=== PATIENT | male | born 1950 | race Caucasian/White ===

== ENCOUNTER 2017-04-25 18:58 | Emergency (ER) | payer OTHER ==
[~2017-04-25] VITALS: Ht 170.2 cm; Wt 80.9 kg
[~2017-04-25 18:58] MED LIST: OXYC-57 PO
[2017-04-25 19:00] VITALS: TEMP 37; Ht 170.2 cm; Wt 80.9 kg
[2017-04-25] MEDS ORDERED: ASPI81TA28 PO (19:17)
--- NOTE | 2017-04-25 19:29 | EMERGENCY ROOM VISIT NOTE ---
ED Visit Note First contact with patient: 19:07 CHIEF COMPLAINT: Left Ankle pain HISTORY OF PRESENT ILLNESS: This 66-year-old male patient presents to the emergency department ambulatory, approximately 12 hours after sustaining an injury to the left ankle and foot with a twisting, inversion motion. The patient states he was walking down his porch steps outside, did not realize that there was ice on the door mat. He states when he stepped, he slipped, falling backwards onto his bottom. He states when he slipped, he twisted the left ankle. The patient reports ongoing swelling and pain of the left ankle all day. The patient complains of pain along the outside of the ankle. The patient denies pain of the foot. The patient rates the pain as throbbing and 6/ 10. The patient is able to bear weight on the foot. Constant pain, worse with movement, initial weight bearing, and the dependent position. The patient states the pain does improve and loosen up as he is walking, however after sitting for a period of time, the ligaments seem to stiffen up which causes more pain when he rises to ambulate. No knee pain, the patient is able to move their toes. No numbness or weakness of the foot, no laceration. The patient has not had a previous fracture to this ankle. The patient has used ice and Epsom soaks without relief of the pain. The patient denies any other injury. REVIEW OF SYSTEMS: A 6 system review of systems was completed with positives and pertinent negatives listed in the HPI. ALLERGIES: None MEDICATIONS: Aspirin PMH: Sleep apnea SOCIAL HISTORY: Lives locally with family. He denies drug, alcohol use. He admits to smoking approximately 1 pack of cigarettes per day. PHYSICAL EXAM: Vital Signs: Reviewed Nurse's notes, vital signs stable. GENERAL : This is a 66-year-old white male, no acute distress, but appears in pain, well -developed, well-nourished. MENTAL STATUS: Alert, oriented to person place and time, and cooperative. MUSCULOSKELETAL: The left ankle is swollen and tender over the lateral malleolus, but the skin is intact and there is no ligamentous instability. There is no fifth metatarsal tenderness. There is no tenderness over the rest of the foot. There is no calf or tibia/fibular tenderness. There is no visual deformity. The foot and toes are warm and well-perfused. Dorsalis pedis pulse 2+. Sensation to pain and light touch is intact. Capillary refill less than 2 seconds. RADIOLOGY: L ANKLE MIN 3 VIEWS ROUTINE CLINICAL HISTORY: 66 years-old Male presenting with left ankle pain. TECHNIQUE: Frontal, mortise, and lateral views of the left ankle were obtained. COMPARISON: None. FINDINGS: Ankle mortise intact. Diffuse soft tissue swelling greatest along the lateral malleolus. Tiny ossific fragment may be present at the inferior pole the medial malleolus. No other evidence of acute fracture or malalignment. IMPRESSION: Tiny ossific fragments may be present at the inferior pole the medial malleolus. This could relate to chronic injury or degeneration versus acute avulsion injury. No other evidence of acute osseous injury. Electronically signed by: Carlos Santos M.D. 04/25/2017 7:31 PM Dictated Date/Time: 04/25/2017 7:30 PM EMERGENCY DEPARTMENT COURSE: I examined the patient. X-rays of the left ankle were reviewed by myself and read by radiology and reveal a possible small avulsion of the medial malleolus. A gel ankle splint was applied to the ankle under my direction and the position was satisfactory. Neurovascular status was rechecked and intact. The patient was encouraged to use the walker he has at home. Discharge instructions reviewed. The patient was discharged home in good condition. The patient was seen and evaluated by Dr. Hughes. I attest that I have personally reviewed the patient's current medication list. Patient was found to have normal blood pressure on screening and does not require follow-up. DIFFERENTIAL DIAGNOSIS: sprain, strain, fracture, avulsion fracture, malignancy , and others DIAGNOSIS: Left ankle sprain Current/Historical Medications Scheduled Aspirin (Aspirin Ec), 81 MG PO DAILY Allergies Coded Allergies: No Known Allergies (Unverified , 02/28/13) Vital Signs Date Time Temp Pulse Resp B/P (MAP) Pulse Ox O2 Delivery O2 Flow Rate FiO2 04/25/17 19:00 37.0 109 16 129/75 94 Room Air Departure Information Impression Primary Impression: Left ankle sprain Dispostion Home / Self-Care Condition GOOD Referrals No Doctor, Assigned (PCP) Villa Lau M.D. Patient Instructions ED Sprain Ankle, [facility] Additional Instructions You have been treated in the Emergency Department for an Ankle sprain, possible small avulsion of the medial malleolus. For pain control, you can use the following [id number] medicines (if >12 yo): Ibuprofen(Motrin, Advil) may be used for fever or pain. Use 600mg every six hours as needed. Take with food. Avoid using more than 2400mg in a 24 hour period. Do not use 2400mg per day for more than three consecutive days without physician direction. Prolonged inappropriate use can lead to stomach upset or ulcers. (AND/OR) Acetaminophen(Tylenol) may be used for fever or pain. Use 1000mg every six hours as needed. Avoid using more than 3000mg in a 24 hour period. If this is a recent injury (<24 hrs), ice can be applied to the area of pain for the first 3 days to help decrease pain and inflammation. You have been provided the number for an Orthopaedic Surgeon. You should call this number if no improvement in symptoms in 1 week, to establish a follow-up visit from today's Emergency Department visit. Use the walker you have at home to help with weight-bearing. Return to the Emergency Department if your current symptoms worsen despite treatment course outlined above, or if you develop any of the following symptoms : intractable pain despite aforementioned treatment course or new onset of numbness or tingling of the foot. Problem Qualifiers Primary Impression: Left ankle sprain Encounter type: initial encounter Involved ligament of ankle: unspecified ligament Qualified Codes: S93.402A - Sprain of unspecified ligament of left ankle, initial encounter
--- NOTE | 2017-04-25 19:32 | DIAGNOSTIC IMAGING REPORT ---
L ANKLE MIN 3 VIEWS ROUTINE CLINICAL HISTORY: 66 years-old Male presenting with left ankle pain. TECHNIQUE: Frontal, mortise, and lateral views of the left ankle were obtained. COMPARISON: None. FINDINGS: Ankle mortise intact. Diffuse soft tissue swelling greatest along the lateral malleolus. Tiny ossific fragment may be present at the inferior pole the medial malleolus. No other evidence of acute fracture or malalignment. IMPRESSION: Tiny ossific fragments may be present at the inferior pole the medial malleolus. This could relate to chronic injury or degeneration versus acute avulsion injury. No other evidence of acute osseous injury. Electronically signed by: Carlos Santos M.D. 04/25/2017 7:31 PM Dictated Date/Time: 04/25/2017 7:30 PM
--- NOTE | 2017-04-25 19:45 | EMERGENCY ROOM VISIT NOTE ---
ED Visit Note First contact with patient: 19:07 I have personally evaluated and examined this patient. I agree with assessment and plan of Maryellen Hill PA-C. 66 yr old male twisted ankle in fall this morning now with bilateral malleulous pain left ankle. Mild TTP over medial and some swelling. Imaging with questionable avulsion. Discussed cast vs boot vs splint and patient prefers to do splint with walker/rest and will follow up with PCP for recheck in a few days. Discussed ortho follow up if continued discomfort.
[2017-04-25 19:53] VITALS: BP 135/80; PULSE 70; O2SAT 98
== END 2017-04-25 19:53 | disposition home or self-care (01) ==
LOC: C.EDB 18:59 → C.EDD 19:53
DX: S93.402A Sprain of unspecified ligament of left ankle, initial encounter (principal); W01.0XXA Fall on same level from slipping, tripping and stumbling without subsequent striking against object, initial encounter; G47.39 Other sleep apnea; F17.200 Nicotine dependence, unspecified, uncomplicated; Z79.82 Long term (current) use of aspirin

== ENCOUNTER → 2017-12-14 | Outpatient (CLI) | payer OTHER ==
[~2017-12-14] MED LIST changes: +ASPI81TA28 PO; +FINA5TAB PO; +OPTIRAY 320 IV PRN; -OXYC-57 PO; +TAMS0.4C38 PO
--- NOTE | 2017-12-14 13:56 | DIAGNOSTIC IMAGING REPORT ---
CT (CHEST) THORAX WITH CT DOSE: 471.58 mGycm HISTORY: Dyspnea LUNG NODULE,HX OF SMOKING TECHNIQUE: Multiaxial CT images of the chest were performed following the intravenous administration of contrast. A dose lowering technique was utilized adhering to the principles of ALARA. COMPARISON: None FINDINGS: Minimal nonspecific interstitial prominence primarily in the mid to lower lung regions bilaterally. There are no focal infiltrative changes. There is a 4 mm low suspicion nodule right middle lobe. There is a 3 mm low suspicion nodule anterior aspect right upper lobe transaxial image 22 There is a 1.5 cm right hilar node. Several smaller nodes in the precarinal, aortopulmonary window region, and to a lesser extent subcarinal region. These additional nodes measure up to 1 cm. Limited evaluation of the upper abdomen confirms fatty infiltration of liver. IMPRESSION: 1. 2 low suspicion nodules right upper and right middle lobe regions as discussed. 2. Slight nonspecific interstitial prominence. 3. Several indeterminate right hilar and mid mediastinal nodes. 4. Six-month follow-up is suggested. The above report was generated using voice recognition software. It may contain grammatical, syntax or spelling errors. Electronically signed by: Darnell Alston M.D. 12/14/2017 1:55 PM Dictated Date/Time: 12/14/2017 1:50 PM
== END | disposition home or self-care (01) ==
LOC: C.CTS 13:18
PROVIDERS: ATTEND Physician Assistant
DX: R91.1 Solitary pulmonary nodule (principal); Z87.891 Personal history of nicotine dependence; R91.8 Other nonspecific abnormal finding of lung field

== ENCOUNTER → 2017-12-20 | Outpatient (CLI) | payer OTHER ==
[~2017-12-20] MED LIST changes: -OPTIRAY 320 IV PRN
[2017-12-20 12:07] LABS: BASO % 0.5 %; BASO ABS # 0.04 K/uL (0-0.2); EOS % 2.1 %; EOS ABS # 0.18 K/uL (0-0.5); HEMATOCRIT 48.7 % (42-52); HEMOGLOBIN 17.3 g/dL (14.0-18.0); IG# 0.01 K/uL (0.00-0.02); LYMPH % 26.8 %; LYMPH ABS # 2.25 K/uL (1.2-3.4); MEAN CORPUSCULAR HEMOGLOBIN 32.3 pg (25-34); MEAN CORPUSCULAR HGB CONC 35.5 g/dl (32-36); MONO % 7.9 %; MONO ABS # 0.66 K/uL (0.11-0.59); NEUT % 62.6 %; NEUT ABS # 5.24 K/uL (1.4-6.5); PLATELET COUNT 269 K/uL (130-400); RED CELL DISTRIBUTION WIDTH CV 14.2 % (11.5-14.5); RED CELL DISTRIBUTION WIDTH SD 47.5 fL (36.4-46.3); WHITE BLOOD COUNT 8.38 K/uL (4.8-10.8)
[2017-12-20 12:41] LABS: ALBUMIN 3.6 gm/dl (3.4-5.0); ALKALINE PHOSPHATASE 138 U/L (45-117); ALT/SGPT 19 U/L (12-78); AST/SGOT 16 U/L (15-37); BLOOD UREA NITROGEN 17 mg/dl (7-18); CALCIUM 8.8 mg/dl (8.5-10.1); CARBON DIOXIDE 22 mmol/L (21-32); CREATININE 1.02 mg/dl (0.60-1.40); GLUCOSE 158 mg/dl (70-99); POTASSIUM 3.6 mmol/L (3.5-5.1); SODIUM 139 mmol/L (136-145); TOTAL PROTEIN 7.9 gm/dl (6.4-8.2)
== END | disposition home or self-care (01) ==
LOC: C.LAB 10:07
PROVIDERS: ATTEND Urology
DX: R31.0 Gross hematuria (principal); C67.9 Malignant neoplasm of bladder, unspecified